=== PATIENT | female | born 1975 | race Hispanic/Latino ===

== ENCOUNTER 2019-01-14 20:05 | Emergency (ER) | payer MEDICAID | END 2019-01-14 21:41 | disposition home or self-care (01) | LOC: EDH 20:05 | DX: M79.672 Pain in left foot (principal); Z98.51 Tubal ligation status; Z90.49 Acquired absence of other specified parts of digestive tract; X50.0XXA Overexertion from strenuous movement or load, initial encounter; Y93.89 Activity, other specified; Y92.098 Other place in other non-institutional residence as the place of occurrence of the external cause; Y99.8 Other external cause status | CPT/HCPCS: 73630 ==

== ENCOUNTER 2022-01-01 16:07 | Emergency (ER) | payer MEDICAID, OTHER ==
[~2022-01-01] VITALS: Ht 167.6 cm; Wt 88.5 kg
[2022-01-01 16:29] LABS: BASOPHILS % (AUTO) 0.2 % (0.0-5.0); HEMATOCRIT 36.5 % (36-48); MEAN CORPUSCULAR HEMOGLOBIN 17.2 pg (27.0-33.0); MEAN CORPUSCULAR HGB CONC 27.7 g/dL (32.0-36.0); MEAN CORPUSCULAR VOLUME 62.3 fL (79-99); MONOCYTES % (AUTO) 4.1 % (3.0-13.0); NEUTROPHILS % (AUTO) 91.3 % (40.0-77.0); PLATELET COUNT (AUTO) 471 K/uL (130-400); RED BLOOD CELL COUNT(AUTO) 5.86 MIL/uL (4.00-5.50); RED CELL DISTRIBUTION WIDTH 20.1 % (11.0-15.5)
[2022-01-01 16:39] LABS: CREATININE 0.7 mg/dL (0.5-1.5); POTASSIUM 4.3 mmol/L (3.5-5.1)
[2022-01-01 16:43] LABS: ALBUMIN 4.2 g/dL (3.5-5.0); BILIRUBIN,TOTAL 0.5 mg/dL (0.2-1.0)
[2022-01-01] MEDS ORDERED: DICYCLOMINE 20MG (10MG/ML) AMP IM STA (16:46)
[2022-01-01] MEDS ORDERED: ONDANSETRON 4MG INJ IVP ONE (17:00)
[2022-01-01] MEDS ORDERED: 0.9%NACL 1000ML 1,779 ML IV ONE (17:00)
[2022-01-01] MEDS ORDERED: FAMOTIDINE 20MG VIAL IV ONE (17:00)
[2022-01-01] MEDS ORDERED: MORPHINE 2 MG SYG IVP ONE (17:00)
[2022-01-01 17:45] LABS: APPEARANCE,URINE Cloudy (CLEAR); BILIRUBIN,URINE Negative (NEGATIVE); COLOR,URINE Dark Yellow (YELLOW); GLUCOSE, URINE (UA) Negative (NEGATIVE); KETONES,URINE Trace mg/dL (NEGATIVE); LEUKOCYTE ESTERASE ,URINE Small (NEGATIVE); NITRATE,URINE Negative (NEGATIVE); OCCULT BLOOD,URINE Negative (NEGATIVE); PH,URINE 5.5 (5.0-8.0); PROTEIN,URINE POS 1+ mg/dL (NEGATIVE)
[2022-01-01] MEDS ORDERED: IOHEXOL-350 75 ML VIAL IV ONE (17:54)
[2022-01-01 18:04] LABS: HCG,QUAL RESULT NEGATIVE (NEGATIVE)
[2022-01-01 18:05] LABS: BACTERIA,URINE Few /HPF (None Seen); RBC,URINE 0-1 /HPF (0-1)
[2022-01-01 18:06] LABS: MUCUS,URINE Moderate LPF (None Seen); SQUAMOUS EPITHELIAL CELL,UR Moderate /HPF (0-2)
[2022-01-01 21:23] LABS: HEMATOCRIT 31.6 % (36-48); MEAN CORPUSCULAR HEMOGLOBIN 17.7 pg (27.0-33.0); MEAN CORPUSCULAR HGB CONC 27.8 g/dL (32.0-36.0); MEAN CORPUSCULAR VOLUME 63.5 fL (79-99); PLATELET COUNT (AUTO) 409 K/uL (130-400); RED BLOOD CELL COUNT(AUTO) 4.98 MIL/uL (4.00-5.50); RED CELL DISTRIBUTION WIDTH 19.9 % (11.0-15.5); WHITE BLOOD COUNT (AUTO) 13.3 K/uL (4.8-10.8)
[2022-01-01] MEDS ORDERED: L.AC1CAP6 PO (22:06)
[2022-01-01] MEDS ORDERED: FAMO-136 PO (22:06)
[2022-01-01] MEDS ORDERED: DICY20TA2 PO (22:06)
[2022-01-01] MEDS ORDERED: ONDA4TAB10 PO (22:06)
[2022-01-01 22:13] LABS: BAND NEUTROPHILS % (MANUAL) 9 % (0-2); LYMPHOCYTES % (MANUAL) 8 % (22-44); MAN.DIFF COMMENT-IMPRESSION MANUAL DIFFERENTIAL; MONOCYTES % (MANUAL) 1 % (2-9); PLATELET MORPHOLOGY COMMENT LARGE PLTS PRESENT; REACTIVE LYMPHOCYTES 2 % (0-0); SEGMENTED NEUTROPHILS % 80 % (40-70)
[2022-01-01 22:23] VITALS: BP 122/86
== END 2022-01-01 22:31 | disposition home or self-care (01) ==
LOC: EDH 16:07
DX: K52.9 Noninfective gastroenteritis and colitis, unspecified (principal); E86.9 Volume depletion, unspecified; Z20.822 Contact with and (suspected) exposure to COVID-19; Z79.899 Other long term (current) drug therapy; Z90.49 Acquired absence of other specified parts of digestive tract
CPT/HCPCS: 36415; 71045; 74177; 80053; 81001; 81025; 82150; 83605; 83690; 85025 ×2; 87635; 96372; 96374; 96375; 99285; C9803; J0500; J2405; J3490; J7030; Q9967

== ENCOUNTER 2022-04-22 19:44 | Emergency (ER) | payer OTHER ==
[~2022-04-22] VITALS: Ht 167.6 cm; Wt 91.6 kg
[~2022-04-22 19:44] MED LIST: DICY20TA2 PO; FAMO-136 PO; L.AC1CAP6 PO; ONDA4TAB10 PO
[2022-04-22 20:18] LABS: BASOPHILS % (AUTO) 0.3 % (0.0-5.0); EOSINOPHILS % (AUTO) 2.2 % (0.0-8.0); HEMATOCRIT 30.7 % (36-48); LYMPHOCYTES % (AUTO) 30.2 % (21.0-51.0); MEAN CORPUSCULAR HEMOGLOBIN 18.5 pg (27.0-33.0); MEAN CORPUSCULAR VOLUME 63.7 fL (79-99); MONOCYTES % (AUTO) 7.4 % (3.0-13.0); NEUTROPHILS % (AUTO) 59.7 % (40.0-77.0); PLATELET COUNT (AUTO) 391 K/uL (130-400); RED BLOOD CELL COUNT(AUTO) 4.82 MIL/uL (4.00-5.50); RED CELL DISTRIBUTION WIDTH 19.6 % (11.0-15.5); WHITE BLOOD COUNT (AUTO) 8.9 K/uL (4.8-10.8)
[2022-04-22 20:24] LABS: APPEARANCE,URINE Clear (CLEAR); BILIRUBIN,URINE Negative (NEGATIVE); COLOR,URINE Yellow (YELLOW); GLUCOSE, URINE (UA) Negative (NEGATIVE); KETONES,URINE Negative (NEGATIVE); LEUKOCYTE ESTERASE ,URINE Negative (NEGATIVE); NITRATE,URINE Negative (NEGATIVE); OCCULT BLOOD,URINE Negative (NEGATIVE); PH,URINE 5.5 (5.0-8.0); PROTEIN,URINE Negative (NEGATIVE); UROBILINOGEN,URINE 0.2 mg/dL (0.2-1.0)
[2022-04-22 20:27] LABS: HCG,QUAL RESULT NEGATIVE (NEGATIVE)
[2022-04-22 20:29] LABS: CREATININE 0.6 mg/dL (0.5-1.5); POTASSIUM 3.7 mmol/L (3.5-5.1)
[2022-04-22] MEDS ORDERED: 0.9% NACL 500ML IV.SOLN 500 ML IV SCH (20:30)
[2022-04-22] MEDS ORDERED: ORPHENADRINE CITRATE 30 MG/ML ML IVP ONE (20:30)
[2022-04-22] MEDS ORDERED: KETOROLAC 15MG/ML VIAL (15MG/ML) IV ONE (20:30)
[2022-04-22 20:34] LABS: ALBUMIN 3.6 g/dL (3.5-5.0); BILIRUBIN,TOTAL 0.2 mg/dL (0.2-1.0); TOTAL PROTEIN, SERUM 7.5 g/dL (6.0-8.3)
[2022-04-22] MEDS ORDERED: IBUP-2070 PO (21:37)
[2022-04-22] MEDS ORDERED: FERR-82 PO (21:37)
[2022-04-22 21:58] VITALS: BP 123/59
== END 2022-04-22 22:01 | disposition home or self-care (01) ==
LOC: EDH 19:44
DX: R51.9 Headache, unspecified (principal); D64.9 Anemia, unspecified; R74.8 Abnormal levels of other serum enzymes; Z79.899 Other long term (current) drug therapy; Z90.49 Acquired absence of other specified parts of digestive tract; Z98.890 Other specified postprocedural states
CPT/HCPCS: 36415; 70450; 80053; 81003; 81025; 84484; 85025; 96374; 96375; 99284; J1885; J2360; J7040

== ENCOUNTER 2022-11-09 18:31 | Emergency (ER) | payer OTHER ==
[~2022-11-09] VITALS: Ht 167.6 cm; Wt 86.2 kg
[~2022-11-09 18:31] MED LIST changes: +FERR-82 PO; +IBUP-2070 PO
[2022-11-09] MEDS ORDERED: IBUPROFEN 800 MG TAB PO ONE (20:30)
[2022-11-09] MEDS ORDERED: NAPR-1180 PO (20:58)
[2022-11-09 21:01] VITALS: BP 125/63
== END 2022-11-09 21:59 | disposition home or self-care (01) ==
LOC: EDH 18:31
DX: M19.042 Primary osteoarthritis, left hand (principal); M19.041 Primary osteoarthritis, right hand
CPT/HCPCS: 73130

== ENCOUNTER 2023-04-25 16:17 | Emergency (ER) | payer OTHER ==
[~2023-04-25] VITALS: Ht 165.1 cm; Wt 88.2 kg
[~2023-04-25 16:17] MED LIST changes: +NAPR-1180 PO
[2023-04-25 16:18] VITALS: BP 130/59
== END 2023-04-25 18:25 | disposition home or self-care (01) ==
LOC: EDH 16:17
DX: B34.9 Viral infection, unspecified (principal); I10 Essential (primary) hypertension; E11.9 Type 2 diabetes mellitus without complications; E78.00 Pure hypercholesterolemia, unspecified; M19.90 Unspecified osteoarthritis, unspecified site; Z20.822 Contact with and (suspected) exposure to COVID-19; Z90.49 Acquired absence of other specified parts of digestive tract; Z79.899 Other long term (current) drug therapy; Z98.890 Other specified postprocedural states
CPT/HCPCS: 99283; 87635; 87880; 87804 ×2; C9803

== ENCOUNTER 2023-05-07 17:04 | Emergency (ER) | payer OTHER ==
[~2023-05-07] VITALS: Ht 165.1 cm; Wt 87.1 kg
[2023-05-07 17:08] VITALS: BP 143/83
[2023-05-07 18:42] LABS: BASOPHILS % (AUTO) 0.3 % (0.0-5.0); EOSINOPHILS % (AUTO) 1.3 % (0.0-8.0); HEMATOCRIT 26.3 % (36-48); LYMPHOCYTES % (AUTO) 26.9 % (21.0-51.0); MEAN CORPUSCULAR HEMOGLOBIN 17.1 pg (27.0-33.0); MEAN CORPUSCULAR HGB CONC 27.8 g/dL (32.0-36.0); MEAN CORPUSCULAR VOLUME 61.4 fL (79-99); MONOCYTES % (AUTO) 8.5 % (3.0-13.0); NEUTROPHILS % (AUTO) 62.6 % (40.0-77.0); PLATELET COUNT (AUTO) 383 K/uL (130-400); RED BLOOD CELL COUNT(AUTO) 4.28 MIL/uL (4.00-5.50); RED CELL DISTRIBUTION WIDTH 19.5 % (11.0-15.5); WHITE BLOOD COUNT (AUTO) 7.5 K/uL (4.8-10.8)
[2023-05-07 18:48] LABS: CREATININE 0.6 mg/dL (0.5-1.5); POTASSIUM 3.6 mmol/L (3.5-5.1)
[2023-05-07 18:50] LABS: ALBUMIN 3.3 g/dL (3.5-5.0); TOTAL PROTEIN, SERUM 7.3 g/dL (6.0-8.3)
[2023-05-07] MEDS ORDERED: KETOROLAC 30MG VIAL (30MG/ML) IM ONE (19:00)
[2023-05-07] MEDS ORDERED: CEPH500B PO (20:03)
== END 2023-05-07 20:31 | disposition home or self-care (01) ==
LOC: EDH 17:04
DX: L03.116 Cellulitis of left lower limb (principal); D53.9 Nutritional anemia, unspecified; I10 Essential (primary) hypertension; E11.9 Type 2 diabetes mellitus without complications; E78.00 Pure hypercholesterolemia, unspecified; M19.90 Unspecified osteoarthritis, unspecified site; Z90.49 Acquired absence of other specified parts of digestive tract; Z98.890 Other specified postprocedural states; Z79.899 Other long term (current) drug therapy
CPT/HCPCS: 99284; 80053; 85025; 36415; 73620; 96372; J1885

== ENCOUNTER 2023-06-24 15:03 | Emergency (ER) | payer OTHER ==
[~2023-06-24] VITALS: Ht 165.1 cm; Wt 88.5 kg
[~2023-06-24 15:03] MED LIST changes: +CEPH500B PO
[2023-06-24 15:44] LABS: APPEARANCE,URINE CLEAR (CLEAR); BILIRUBIN,URINE NEGATIVE (NEGATIVE); COLOR,URINE LIGHT-YELLOW (YELLOW); GLUCOSE, URINE (UA) >=1000 mg/dL (NEGATIVE); KETONES,URINE 5 mg/dL (NEGATIVE); LEUKOCYTE ESTERASE ,URINE 25 Leu/uL (NEGATIVE); NITRATE,URINE NEGATIVE (NEGATIVE); OCCULT BLOOD,URINE NEGATIVE (NEGATIVE); PH,URINE 5.5 (5.0-8.0); PROTEIN,URINE 10 mg/dL (NEGATIVE); UROBILINOGEN,URINE 0.2 mg/dL (0.2-1.0)
[2023-06-24] MEDS ORDERED: CEFTRIAXONE 1G VIAL IM ONE (16:30)
[2023-06-24 16:37] LABS: BASOPHILS % (AUTO) 0.3 % (0.0-5.0); EOSINOPHILS % (AUTO) 0.8 % (0.0-8.0); HEMATOCRIT 28.7 % (36-48); LYMPHOCYTES % (AUTO) 24.2 % (21.0-51.0); MEAN CORPUSCULAR HGB CONC 27.9 g/dL (32.0-36.0); MEAN CORPUSCULAR VOLUME 60.9 fL (79-99); MONOCYTES % (AUTO) 6.4 % (3.0-13.0); PLATELET COUNT (AUTO) 346 K/uL (130-400); RED BLOOD CELL COUNT(AUTO) 4.71 MIL/uL (4.00-5.50); RED CELL DISTRIBUTION WIDTH 18.7 % (11.0-15.5); WHITE BLOOD COUNT (AUTO) 7.2 K/uL (4.8-10.8)
[2023-06-24 16:37] LABS: BACTERIA,URINE FEW /HPF (None Seen); MUCUS,URINE FEW LPF (None Seen); SQUAMOUS EPITHELIAL CELL,UR MOD /HPF (0-2)
[2023-06-24 16:45] LABS: CREATININE 0.7 mg/dL (0.5-1.5); POTASSIUM 3.6 mmol/L (3.5-5.1)
[2023-06-24 16:49] LABS: ALBUMIN 3.3 g/dL (3.5-5.0); TOTAL PROTEIN, SERUM 7.4 g/dL (6.0-8.3)
[2023-06-24] MEDS ORDERED: NITR100C PO (19:46)
[2023-06-24 19:57] VITALS: BP 142/78; PULSE 88; RESP 16; O2SAT 99
== END 2023-06-24 20:02 | disposition home or self-care (01) ==
LOC: EDH 15:03
DX: D64.9 Anemia, unspecified (principal); N39.0 Urinary tract infection, site not specified; E11.9 Type 2 diabetes mellitus without complications; E78.00 Pure hypercholesterolemia, unspecified; I10 Essential (primary) hypertension; M19.90 Unspecified osteoarthritis, unspecified site; Z90.49 Acquired absence of other specified parts of digestive tract; Z98.51 Tubal ligation status
CPT/HCPCS: 99285; 76856; 80053; 85025; 87797; 87486; 81001; 36415; 96372; J0696

== ENCOUNTER 2023-08-03 16:36 | Emergency (ER) | payer OTHER ==
[~2023-08-03] VITALS: Ht 165.1 cm; Wt 86.2 kg
[~2023-08-03 16:36] MED LIST changes: +NITR100C PO
[2023-08-03 16:38] VITALS: BP 146/82; PULSE 85; RESP 17
[2023-08-03 16:58] LABS: APPEARANCE,URINE CLEAR (CLEAR); BILIRUBIN,URINE NEGATIVE (NEGATIVE); COLOR,URINE LIGHT-YELLOW (YELLOW); GLUCOSE, URINE (UA) 500 mg/dL (NEGATIVE); KETONES,URINE NEGATIVE (NEGATIVE); LEUKOCYTE ESTERASE ,URINE 500 Leu/uL (NEGATIVE); NITRATE,URINE NEGATIVE (NEGATIVE); OCCULT BLOOD,URINE LARGE (NEGATIVE); PH,URINE 5.5 (5.0-8.0); PROTEIN,URINE 10 mg/dL (NEGATIVE); UROBILINOGEN,URINE 0.2 mg/dL (0.2-1.0)
[2023-08-03 16:59] LABS: ADD UA MICROSCOPIC YES
[2023-08-03 17:03] LABS: BACTERIA,URINE RARE /HPF (None Seen); MUCUS,URINE RARE LPF (None Seen); RBC,URINE 51-100 /HPF (0-1); SQUAMOUS EPITHELIAL CELL,UR RARE /HPF (0-2); UNCLASSIFIED CRYSTAL 2 /HPF (None Seen); WBC,URINE 26-50 /HPF (0-1); YEAST,URINE BUDDING FEW /HPF (None Seen)
[2023-08-03 17:20] LABS: HCG,QUALITATIVE URINE NEGATIVE (NEGATIVE)
[2023-08-03] MEDS ORDERED: PHEN-847 PO (18:40)
[2023-08-03] MEDS ORDERED: FLUC150T PO (18:40)
[2023-08-03] MEDS ORDERED: TERB250T89 PO (18:40)
[2023-08-03] MEDS ORDERED: MACR100 PO (18:40)
== END 2023-08-03 19:11 | disposition home or self-care (01) ==
LOC: EDH 16:36
DX: I10 Essential (primary) hypertension (principal); E11.9 Type 2 diabetes mellitus without complications; E78.00 Pure hypercholesterolemia, unspecified; M19.90 Unspecified osteoarthritis, unspecified site; Z90.49 Acquired absence of other specified parts of digestive tract; Z79.899 Other long term (current) drug therapy; Z98.890 Other specified postprocedural states
CPT/HCPCS: 81001; 81025; 87077; 87088; 87186

== ENCOUNTER 2024-02-26 11:51 | Emergency (ER) | payer OTHER ==
[~2024-02-26] VITALS: Ht 165.1 cm; Wt 84.8 kg
[~2024-02-26 11:51] MED LIST changes: +FLUC150T PO; +MACR100 PO; +PHEN-847 PO; +TERB250T89 PO
[2024-02-26 12:28] VITALS: BP 159/79; PULSE 79; RESP 18
== END 2024-02-26 13:26 | disposition left against medical advice (07) ==
LOC: EDH 11:51
DX: R07.81 Pleurodynia (principal); Z53.21 Procedure and treatment not carried out due to patient leaving prior to being seen by health care provider
CPT/HCPCS: 99281

== ENCOUNTER 2024-05-12 22:04 | Emergency (ER) | payer OTHER ==
[~2024-05-12] VITALS: Ht 165.1 cm; Wt 85.4 kg
[~2024-05-12 22:04] MED LIST changes: +ONDA-243 PO; -ONDA4TAB10 PO
[2024-05-12 22:29] VITALS: BP 141/83; PULSE 85; RESP 18; O2SAT 99
[2024-05-12 22:43] LABS: BASOPHILS # (AUTO) 0.03 K/uL (0.00-0.20); BASOPHILS % (AUTO) 0.3 % (0.0-5.0); EOSINOPHILS # (AUTO) 0.09 K/uL (0.00-0.70); HEMATOCRIT 26.9 % (36-48); IMMATURE GRANULOCYTE ABSOLUTE 0.03 K/uL (0-1); LYMPHOCYTES # (AUTO) 2.9 K/uL (1.0-4.8); LYMPHOCYTES % (AUTO) 30.7 % (21.0-51.0); MEAN CORPUSCULAR HEMOGLOBIN 16.3 pg (27.0-33.0); MEAN CORPUSCULAR HGB CONC 27.5 g/dL (32.0-36.0); MEAN CORPUSCULAR VOLUME 59.4 fL (79-99); MONOCYTES # (AUTO) 0.5 K/uL (0.1-1.0); MONOCYTES % (AUTO) 5.6 % (3.0-13.0); NEUTROPHILS # (AUTO) 5.9 K/uL (1.8-7.7); NEUTROPHILS % (AUTO) 62.1 % (40.0-77.0); PLATELET COUNT (AUTO) 379 K/uL (130-400); RED BLOOD CELL COUNT(AUTO) 4.53 MIL/uL (4.00-5.50); RED CELL DISTRIBUTION WIDTH 19.5 % (11.0-15.5); WHITE BLOOD COUNT (AUTO) 9.5 K/uL (4.8-10.8)
[2024-05-12 22:49] LABS: APPEARANCE,URINE CLEAR (CLEAR); BILIRUBIN,URINE NEGATIVE (NEGATIVE); COLOR,URINE LIGHT-YELLOW (YELLOW); GLUCOSE, URINE (UA) NEGATIVE (NEGATIVE); KETONES,URINE NEGATIVE (NEGATIVE); LEUKOCYTE ESTERASE ,URINE NEGATIVE Leu/uL (NEGATIVE); NITRATE,URINE NEGATIVE (NEGATIVE); OCCULT BLOOD,URINE NEGATIVE (NEGATIVE); PH,URINE 5.5 (5.0-8.0); PROTEIN,URINE 10 mg/dL (NEGATIVE); UROBILINOGEN,URINE 0.2 mg/dL (0.2-1.0)
[2024-05-12 22:50] LABS: HCG,QUALITATIVE URINE NEGATIVE (NEGATIVE)
[2024-05-12 22:55] LABS: ADD UA MICROSCOPIC YES
[2024-05-12 22:56] LABS: BACTERIA,URINE FEW /HPF (None Seen); MUCUS,URINE RARE LPF (None Seen); RBC,URINE 0-1 /HPF (0-1); SQUAMOUS EPITHELIAL CELL,UR MOD /HPF (0-2)
[2024-05-12 22:58] LABS: ALBUMIN 3.8 g/dL (3.5-5.0); BILIRUBIN,TOTAL 0.3 mg/dL (0.2-1.0); CREATININE 0.7 mg/dL (0.5-1.0); TOTAL PROTEIN, SERUM 7.7 g/dL (6.0-8.3)
[2024-05-12] MEDS: FAMOTIDINE 20MG VIAL IV ONE (23:19)
[2024-05-12] MEDS: ONDANSETRON 4MG INJ IVP ONE (23:19)
[2024-05-12] MEDS: POTASSIUM BICARB/CIT AC 25 MEQ TABLET.EFF PO ONE (23:19)
== END 2024-05-13 00:16 | disposition home or self-care (01) ==
LOC: EDH 22:04
DX: E87.6 Hypokalemia (principal); R11.2 Nausea with vomiting, unspecified
CPT/HCPCS: 99285; 96374; 71045; 96375; 84484; 80053; 83690; 85025; 81001; 81025; 36415; 93005; J3490; J2405

== ENCOUNTER 2024-10-24 10:02 | Emergency (ER) | payer SELFPAY ==
[~2024-10-24] VITALS: Ht 160 cm; Wt 67.1 kg
[~2024-10-24 10:02] MED LIST changes: +AZIT250T9 PO; +DOCU-116 PO; +FERR324T4 PO; +IBUP-2077 PO; +METH4TAB3 PO
[2024-10-24] MEDS ORDERED: VALG450T15 PO (10:34)
--- NOTE | 2024-10-24 10:34 | ERN ---
General Chief Complaint: Vaginal Problems/Bleeding Stated Complaint: BLISTERS IN VAGINA Time Seen by MD: 10:03 Source: patient History of Present Illness Initial Comments Patient is a 49-year-old female coming in to be evaluated for vaginal lesions. Patient states that the vaginal lesions appears three days ago. Patient also states that she has been having intercourse with an ex-boyfriend. Allergies: Coded Allergies: No Known Drug Allergies (Unverified Allergy, Unknown, 01/01/22) Home Meds Active Scripts Ibuprofen (Ibuprofen 800 mg Tab) 800 Mg Tab, 800 MG PO Q8H PRN for fever or pain, #30 TAB 0 Refills Prov:ANGE DUNCAN NP 08/19/24 Docusate Sodium (Colace) 100 Mg Capsule, 100 MG PO TID for constipation for 10 Days, #30 CAP 0 Refills Prov:JUD DAVIS 06/12/24 Ferrous Sulfate (Ferrous Sulfate) 324 Mg (65 Mg Iron) Tablet.dr, 324 MG PO DAILY for 14 Days, #14 TAB Prov:JUD DAVIS 06/12/24 Methylprednisolone (Medrol) 4 Mg Tab.ds.pk, 4 MG PO AD, #1 PACK Prov:JUD DAVIS 06/12/24 Azithromycin (Azithromycin) 250 Mg Tablet, 250 MG PO DAILY for 5 Days, #6 TAB Take 2 250mg tablets on day 1 then take 1 250mg tablets daily for 4 days. Prov:JUD DAVIS 06/12/24 Terbinafine HCl (Terbinafine HCl) 250 Mg Tablet, 250 MG PO DAILY, #14 TAB Prov:SIDNEY JORDAN [facility] 08/03/23 Phenazopyridine HCl (Pyridium) 200 Mg Tab, 200 MG PO TIDPC, #12 TAB TAKE WITH FOOD TO PREVENT STOMACH UPSET. Prov:SIDNEY JORDAN [facility] 08/03/23 Nitrofurantoin/Nitrofuran Mac (Macrobid) 100 Mg Cap, 1 CAP PO BID for 7 Days, #14 CAP 0 Refills Prov:SIDNEY JORDAN [facility] 08/03/23 Fluconazole (Diflucan) 150 Mg Tablet, 150 MG PO Q72H, #3 TAB Prov:SIDNEY JORDAN [facility] 08/03/23 Nitrofurantoin Macrocrystal (Nitrofurantoin) 100 Mg Capsule, 100 MG PO BID, #10 CAP 0 Refills Prov:COCO DOMINGUEZ [employer] 06/24/23 Cephalexin Monohydrate (Keflex) 500 Mg Cap, 500 MG PO QID for 7 Days, #28 CAP Prov:BARBY PETTY [facility] [employer] 05/07/23 Naproxen (Naprosyn) 500 Mg Tablet, 500 MG PO BIDPC for 10 Days, #20 TAB 0 Refills Prov:JOVANNYBARBY [facility] [employer] 11/09/22 Ferrous Sulfate (Iron) 325 Mg Tablet, 325 MG PO BID for 30 Days, #60 TAB Prov:LEOPEARL HARRISON A DO 04/22/22 Ibuprofen (Ibuprofen) 600 Mg Tablet, 600 MG PO Q6H PRN for PAIN, #20 TAB Prov:LEOMICHAELPEARL A DO 04/22/22 Famotidine (Pepcid) 20 Mg Tablet, 20 MG PO BID, #30 TAB Prov:FITTING,KAI [facility] [employer] 01/01/22 Dicyclomine HCl (Bentyl) 20 Mg Tab, 20 MG PO QID for ABDOMINAL PAIN, #15 TAB Prov:FITTING,KAI [employer] 01/01/22 L.acidoph & Paracasei,B.lactis (Probiotic) 1 Each Capsule, 1 EACH PO DAILY, #30 CAP Prov:FITTING,KAI [employer] 01/01/22 Ondansetron (Ondansetron Odt) 4 Mg Tab.rapdis, 4 MG PO Q6HPRN PRN for NAUSEA, #15 TAB Prov:FITTING,KAI [employer] 01/01/22 Past Medical History Past Medical History: Arthritis, Diabetes-Type II, High Cholesterol, Hypertension Past Surgical History: Cholecystectomy, BTL Surgical History Other: TUBAL LIGATION Social History Social History: Negative Female( History) History: Not Applicable LMP: Sep 29, 2024 ROS Dictation CONSTITUTIONAL: No chills, no fever, no weakness, no diaphoresis, no malaise. HEAD/FACE: No signs of trauma. EENT: No eye pain, no blurred vision, no tearing, no double vision, no ear pain, no ear discharge, no nose pain, no nasal congestion, no throat pain, no throat swelling, no mouth pain. RESPIRATORY: No cough, no orthopnea, no SOB, no stridor, no wheezing. CARDIOVASCULAR: No chest pain, no edema, no palpitations, no syncope. GASTROINTESTINAL/ABDOMINAL: No abdominal pain, no constipation, no diarrhea, no nausea, no vomiting. GENITOURINARY: No abnormal discharge, no dysuria, no frequent urination, no hematuria. complaints of pain in the genitals. MUSCULOSKELETAL: No back pain, no gout, no joint pain, no joint swelling, no muscle pain, no muscle stiffness, no neck pain. INTEGUMENTARY: No change in color, no change in hair/nails, no dryness, no lesion, no lumps, no rash. NEUROLOGICAL/PSYCH: No anxiety, not depressed, no emotional problem, no headac he, no numbness, no pre-existing deficit, no history of seizures, no tremors, no weakness. HEMATOLOGIC/LYMPHATIC: Not anemic, no history of blood clots, no apparent bleeding, no bruising, glands not swollen. All Systems Negative, Except as Noted. Physical Exam Physical Exam Dictation VITAL SIGNS: Reviewed. GENERAL APPEARANCE: Alert, oriented x3, no acute distress, obese. HEAD AND FACE: Non-traumatic. EYES: PERRL, pink conjunctivas, eyelid no trauma, anterior chamber clear. EARS: Pinnas intact and no signs of trauma or erythema. Ear canals clear and no discharge. TMs no erythema. NOSE: No discharge, no bleeding. OROPHARYNX: Mouth normal, teeth no caries, tongue pink. Pharynx clear, no erythema. Tonsils no exudates, no abscesses noted. Mucous membrane moist. NECK: Supple, non-tender, no thyromegaly, no masses, no JVD, no bruits. BREAST: Deferred. CHEST: No tenderness, no crepitus, no paradoxical movement, no retractions. LUNGS: Clear, well-ventilated, symmetric, no rales, no wheezing, no rhonchi, no stridor, good breath sounds bilaterally. HEART: Regular rate, regular rhythm, no murmur, no gallops. VASCULAR: No peripheral edema. ABDOMEN: Soft, positive bowel sounds, nondistended, no guarding, nontender, no rebound, no masses no hepatomegaly, no splenomegaly, no Rodriges's sign, no hernias. RECTAL: Deferred. GENITAL: Chaperoned by nurse Michelle, left labia majora vesicles unroofed. NEUROLOGICAL: Normal speech, gross motor function intact, gross sensory fu nction intact. MUSCULOSKELETAL: Neck nontender, full range of motion, back nontender, full range of motion. EXTREMITIES: Nontender, full range of motion. SKIN: Color pink, dry, no turgor, no rash, no lacerations, no abrasions, no contusions. LYMPHATICS: Deferred. Results Laboratory and Microbiology Labs Reviewed?: Yes MDM MDM: Differential diagnosis: Herpes simplex genitalia, rash, abrasion Patient is a 49-year-old female coming in to be evaluated for a genital rash. On physical exam there is multiple unroofed vesicular lesions present on the left labia majora. Laboratory workup collected patient will be notified on results. Until then patient will receive acyclovir for treatment of possible herpes simplex genitalia. ED Course Orders Procedure Category Date Status Time Hsv 1 Type Specific LAB 10/24/24 Verified Igg,Serum 10:28 Hsv 1&2 Type LAB 10/24/24 Verified Specific,Igg 10:28 Herpes Simplex Virus LAB 10/24/24 Verified I/Ii-Pcr 10:28 Hsv Culture ELLI 10/24/24 Verified 10:28 Hsv Culture & Type ELLI 10/24/24 Verified 10:28 Vital Signs Date Time Temp Pulse Resp B/P (MAP) Pulse Ox O2 Delivery O2 Flow Rate FiO2 10/24/24 10:03 98.6 74 16 139/73 99 Room Air 0 DX & DISP Disposition: Discharge Departure Impression: Primary Impression: Herpes simplex of female genitalia Condition: Stable Scripts Valganciclovir HCl (Valganciclovir HCl) 450 Mg Tablet 1000 MG PO BID for 10 Days, #20 TAB Prov: JENNIFER OSBORN MD 10/24/24 Additional Instructions: FOLLOW-UP WITH PRIMARY CARE PROVIDER IN 1 TO 2 DAYS. TAKE MEDICATIONS DIRECTED HERE IN THE EMERGENCY ROOM. OKAY TO CONTINUE HOME MEDICATIONS UNLESS OTHERWISE DISCUSSED DURING YOUR VISIT IN THE EMERGENCY ROOM TODAY. RETURN TO YOUR NEAREST EMERGENCY ROOM IF SYMPTOMS WORSEN OR IF THERE IS NO IMPROVEMENT. CALL 911 IF YOU NEED IMMEDIATE ASSISTANCE. TAKE TYLENOL [id number] NEEDED AND IF NO CONTRAINDICATIONS ARE PRESENT. INCREASE ORAL HYDRATION. A WOUND CULTURE OR URINE CULTURE WAS ORDERED HERE IN THE EMERGENCY ROOM DEPARTMENT PLEASE FOLLOW-UP WITH PRIMARY CARE PROVIDER AND ADVISE THEM TO GET REPEAT PORTS FROM OUR FACILITY. IF YOU HAD ANY LEANN WRAP/SPLINTS THAT WERE APPLIED HERE, PLEASE DO NOT REMOVE THEM UNTIL YOU SEE YOUR PRIMARY CARE OR SPECIALTY. Referrals: Referrals: HUNTER DE PAZ PA-C (PCP) Time of Disposition: 10:31 JENNIFER OSBORN MD Oct 24, 2024 10:34
[2024-10-24 11:20] VITALS: BP 112/57; PULSE 80; RESP 16; TEMP 98.3; O2SAT 98
[2024-10-26 23:08] LABS: HERPES SIMPLEX VIRUS-1 BY PCR Negative (Negative); HERPES SIMPLEX VIRUS-2 BY PCR Positive (Negative)
== END 2024-10-24 11:35 | disposition home or self-care (01) ==
LOC: EDH 10:02
DX: B00.9 Herpesviral infection, unspecified (principal); E11.9 Type 2 diabetes mellitus without complications; E78.00 Pure hypercholesterolemia, unspecified; I10 Essential (primary) hypertension; M19.90 Unspecified osteoarthritis, unspecified site; Z90.49 Acquired absence of other specified parts of digestive tract; Z98.51 Tubal ligation status
CPT/HCPCS: 36415; 86695; 86696; 87529; 99283

== ENCOUNTER 2025-02-12 13:44 | Emergency (ER) | payer SELFPAY ==
[~2025-02-12] VITALS: Ht 162.6 cm; Wt 83.9 kg
[~2025-02-12 13:44] MED LIST changes: +VALG450T15 PO
--- NOTE | 2025-02-12 13:50 | ERN ---
ED Note History of Present Illness Stated Complaint: FEVER, CHILLS, COUGH, CHEST PAIN Chief Complaint: Sore Throat Time Seen by MD: 13:45 Dictation: PATIENT IS A 49-YEAR-OLD FEMALE COMING IN WITH FLU-LIKE SYMPTOMS TO INCLUDE BODY ACHES, DRY COUGH, SORE THROAT WITH PAINFUL SWALLOWING AND SINUS CONGESTION WITH HEADACHE FOR LAST THREE DAYS. SHE STATES SHE HAS HAD FEVER ALTHOUGH NO THERMOMETER HOME. NO NAUSEA NO VOMITING NO DIARRHEA NO LOSS OF TASTE OR SMELL. SHE HAS NOT SEEN HER PRIMARY CARE DOCTOR. Allergies: Coded Allergies: No Known Drug Allergies (Unverified Allergy, Unknown, 01/01/22) Home Meds Active Scripts Valganciclovir HCl (Valganciclovir HCl) 450 Mg Tablet, 1000 MG PO BID for 10 Days, #20 TAB Prov:JENNIFER OSBORN MD 10/24/24 Ibuprofen (Ibuprofen 800 mg Tab) 800 Mg Tab, 800 MG PO Q8H PRN for fever or pain, #30 TAB 0 Refills Prov:ANGE DUNCAN NP 08/19/24 Docusate Sodium (Colace) 100 Mg Capsule, 100 MG PO TID for constipation for 10 Days, #30 CAP 0 Refills Prov:JUD DAVIS 06/12/24 Ferrous Sulfate (Ferrous Sulfate) 324 Mg (65 Mg Iron) Tablet.dr, 324 MG PO DAILY for 14 Days, #14 TAB Prov:JUD DAVIS 06/12/24 Methylprednisolone (Medrol) 4 Mg Tab.ds.pk, 4 MG PO AD, #1 PACK Prov:JUD DAVIS 06/12/24 Azithromycin (Azithromycin) 250 Mg Tablet, 250 MG PO DAILY for 5 Days, #6 TAB Take 2 250mg tablets on day 1 then take 1 250mg tablets daily for 4 days. Prov:JUD DAVIS 06/12/24 Terbinafine HCl (Terbinafine HCl) 250 Mg Tablet, 250 MG PO DAILY, #14 TAB Prov:SIDNEY JORDAN [employer] CONSULTING DIRECTOR 08/03/23 Phenazopyridine HCl (Pyridium) 200 Mg Tab, 200 MG PO TIDPC, #12 TAB TAKE WITH FOOD TO PREVENT STOMACH UPSET. Prov:SIDNEY JORDAN IT CONSULTING DIRECTOR 08/03/23 Nitrofurantoin/Nitrofuran Mac (Macrobid) 100 Mg Cap, 1 CAP PO BID for 7 Days, #14 CAP 0 Refills Prov:SARAH JORDANLUPE IT CONSULTING DIRECTOR 08/03/23 Fluconazole (Diflucan) 150 Mg Tablet, 150 MG PO Q72H, #3 TAB Prov:SARAH JORDANLUPE IT CONSULTING DIRECTOR 08/03/23 Nitrofurantoin Macrocrystal (Nitrofurantoin) 100 Mg Capsule, 100 MG PO BID, #10 CAP 0 Refills Prov:COCO DOMINGUEZ [employer]EL[employer] 06/24/23 Cephalexin Monohydrate (Keflex) 500 Mg Cap, 500 MG PO QID for 7 Days, #28 CAP Prov:BARBY PETTY V IT CONSULTING DIRECTOR 05/07/23 Naproxen (Naprosyn) 500 Mg Tablet, 500 MG PO BIDPC for 10 Days, #20 TAB 0 Refills Prov:BARBY PETTY V IT CONSULTING DIRECTOR 11/09/22 Ferrous Sulfate (Iron) 325 Mg Tablet, 325 MG PO BID for 30 Days, #60 TAB Prov:LEOPEARL HARRISON A DO 04/22/22 Ibuprofen (Ibuprofen) 600 Mg Tablet, 600 MG PO Q6H PRN for PAIN, #20 TAB Prov:LEOMICHAELPEARL A DO 04/22/22 Famotidine (Pepcid) 20 Mg Tablet, 20 MG PO BID, #30 TAB Prov:FITTINGKAI IT CONSULTING DIRECTOR 01/01/22 Dicyclomine HCl (Bentyl) 20 Mg Tab, 20 MG PO QID for ABDOMINAL PAIN, #15 TAB Prov:FITTINGKAIP 01/01/22 L.acidoph & Paracasei,B.lactis (Probiotic) 1 Each Capsule, 1 EACH PO DAILY, #30 CAP Prov:FITTINGKAI IT CONSULTING DIRECTOR 01/01/22 Ondansetron (Ondansetron Odt) 4 Mg Tab.rapdis, 4 MG PO Q6HPRN PRN for NAUSEA, #15 TAB Prov:FITTINGKAIP 01/01/22 Past Medical History Past Medical History: Arthritis, Diabetes-Type II, High Cholesterol, Hypertension Surgical History: Cholecystectomy, BTL Surgical History Other: TUBAL LIGATION Social History: Negative History: Not Applicable RN Note Reviewed/Agreed w/PFSH: Yes Review of System Dictation CONSTITUTIONAL: NEGATIVE EXCEPT FOR HPI FEVER CHILLS HEAD/FACE: NEGATIVE EXCEPT FOR HPI EENT: NEGATIVE EXCEPT FOR HPI SINUS HEADACHE, SORE THROAT WITH PAINFUL SWALLOWING, SINUS CONGESTION RESPIRATORY: NEGATIVE EXCEPT FOR HPI DRY COUGH GASTROINTESTINAL/ABDOMINAL: NEGATIVE EXCEPT FOR HPI GENITOURINARY: NEGATIVE EXCEPT FOR HPI MUSCULOSKELETAL: NEGATIVE EXCEPT FOR HPI INTEGUMENTARY: NEGATIVE EXCEPT FOR HPI NEUROLOGICAL/PSYCH: NEGATIVE EXCEPT FOR HPI HEMATOLOGIC/LYMPHATIC: NEGATIVE EXCEPT FOR HPI ALL SYSTEMS NEGATIVE, EXCEPT NOTED ABOVE. 13 POINT REVIEW OF SYSTEMS ASSESSED AND ALL NEGATIVE EXCEPT FOR ABOVE. Initial Vital Sign VS Vital Signs Date Time Temp Pulse Resp B/P (MAP) Pulse Ox O2 Delivery O2 Flow Rate FiO2 02/12/25 13:47 99.1 18 18 138/65 98 Room Air 0 02/12/25 13:54 21 Physical Exam Dictation VITAL SIGNS REVIEWED GENERAL APPEARANCE: ALERT, ORIENTED X 3, MODERATE ACUTE DISTRESS, WELL DEVELOPED, NOURISHED. HEAD AND FACE: NON-TRAUMATIC. EYES: PERRL, PINK CONJUNCTIVAS, EYELID NO TRAUMA, ANTERIOR CHAMBER WITH ARCUS SENILIS. EARS: PINNAS INTACT AND NO SIGNS OF TRAUMA OR ERYTHEMA EAR CANALS CLEAR AND NO DISCHARGE TM NO ERYTHEMA NOSE: CLEAR DISCHARGE, NO BLEEDING. OROPHARYNX: MOUTH NORMAL, TONGUE PINK, PHARYNX CLEAR,NO ERYTHEMA, TONSIL 3/4 BILATERALLY AND CRYPTIC, NO ABSCESSES NOTED, MUCOUS MEMBRANE MOIST UVULA MIDLINE, VOICE IS CLEAR NECK: SUPPLE, NON-TENDER, NO THYROMEGALY, NO MASSES, NO JVD, NO BRUITS BREAST:DEFERRED CHEST:NO TENDERNESS, NO CREPITUS, NO PARADOXICAL MOVEMENT, NO RETRACTIONS LUNGS:CLEAR, WELL-VENTILATED, SYMMETRIC, NO RALES, NO WHEEZING, NO RHONCHI, NO STRIDOR, GOOD BREATH SOUNDS BILATERALLY HEART: REGULAR RATE, REGULAR RHYTHM, NO MURMUR, NO GALLOPS VASCULAR: NO PERIPHERAL EDEMA, ABDOMEN: SOFT, POSITIVE BOWEL SOUNDS, NONDISTENDED, NO GUARDING, NONTENDER, NO REBOUND, NO MASSES NO HEPATOMEGALY, NO SPLENOMEGALY, NO MARSHALL'S SIGN, NO HERNIAS. RECTAL: DEFERRED GENITAL: DEFERRED NEUROLOGICAL: NORMAL SPEECH, MOTOR FUNCTION INTACT, SENSORY FUNCTION INTACT MUSCULOSKELETAL: NECK NONTENDER, FULL RANGE OF MOTION, BACK NONTENDER, FULL RANGE OF MOTION, EXTREMITIES: NONTENDER, FULL RANGE OF MOTION SKIN: COLOR PINK, DRY, NO TURGOR, NO RASH, NO LACERATIONS, NO ABRASIONS, NO CONTUSIONS. LYMPHATIC: DEFERRED Results (Laboratory/Radiology) Laboratory/Radiology Laboratory Tests Test 02/12/25 13:57 Influenza Type A Antigen Negative For Type A Influenza Type B Antigen Positive For Type B SARS-CoV-2 Antigen (Rapid) PRESUMPTIVE NEGATIVE Group A Streptococcus Rapid positive (NEGATIVE) *A Labs Reviewed?: Yes ED Course ED Course Orders Procedure Category Date Status Time Dexamethasone 4mg/Ml PHA 02/12/25 Complete 1ml Vial (Dexametha 14:00 Ibuprofen 800 Mg Tab PHA 02/12/25 Complete (Motrin) 14:00 Rapid (Group A Strep) LAB 02/12/25 Complete 13:47 Covid19 (Sars Antigen LAB 02/12/25 Complete Rapid) 13:47 Influenza Type A & B, LAB 02/12/25 Complete Rapid 13:47 Ceftriaxone 1g Vial PHA 02/12/25 Verified (Rocephine 1g Inj) 15:00 Current Medications Medications (Trade) Dose Ordered Sig/Mercedes Route PRN Reason Start Time Stop Time Status Last Admin Dose Admin Dexamethasone Sodium Phosphate (dexaMETHasone 4MG/ML 1ML VIAL) 8 mg ONCE ONCE IM 02/12/25 14:00 02/12/25 14:01 DC 02/12/25 14:01 Ibuprofen (moTRIN) 800 mg ONCE ONCE PO 02/12/25 14:00 02/12/25 14:01 DC Vital Signs Date Time Temp Pulse Resp B/P (MAP) Pulse Ox O2 Delivery O2 Flow Rate FiO2 02/12/25 13:54 99.0 87 12 128/89 98 Room Air* 0 21 02/12/25 13:47 99.1 18 18 138/65 98 Room Air 0 1445/PATIENT AWARE THAT SHE HAS A INFLUENZA B AND STREP PHARYNGITIS. SHE WILL BE GIVEN A SHOT OF ROCEPHIN ALONG WITH DECADRON DISCHARGED HOME TO SEE HER DOCTOR, DR. SO IN THE NEXT 3-4 DAYS. Medical Decision Making MDM MEDICAL DISCHARGE MAKING BASED ON SWABS FOR FLU COVID AND STREP. PATIENT IS STREP POSITIVE INFLUENZA B POSITIVE DISCHARGED HOME WITH TAMIFLU AND AUGMENTIN TOLD NO WORK UNTIL CLEARED BY HER DOCTOR BACK IN 3-4 DAYS. DX & DISP Disposition: Discharge Departure Impression: Primary Impression: Influenza B Additional Impressions: Acute streptococcal tonsillitis, Fever Condition: Stable Scripts Oseltamivir Phosphate (Tamiflu) 75 Mg Cap 75 MG PO BID for 5 Days, #10 CAP Prov: ANGE DUNCAN NP 02/12/25 Amoxicillin/Potassium Clav (Amox Tr-K Clv 600-42.9/5 Susp) 600 Mg-42.9 Mg/5 Ml Susp.recon 10 ML PO BID for 10 Days, #200 ML 0 Refills Prov: ANGE DUNCAN NP 02/12/25 Prednisolone (Prednisolone) 15 Mg/5 Ml Solution 10 ML PO DAILY for 5 Days, #50 ML 0 Refills Prov: ANGE DUNCAN NP 02/12/25 Additional Instructions: FOLLOW-UP WITH PRIMARY CARE PROVIDER IN 1 TO 2 DAYS. TAKE MEDICATIONS DIRECTED HERE IN THE EMERGENCY ROOM. OKAY TO CONTINUE HOME MEDICATIONS UNLESS OTHERWISE DISCUSSED DURING YOUR VISIT IN THE EMERGENCY ROOM TODAY. RETURN TO YOUR NEAREST EMERGENCY ROOM IF SYMPTOMS WORSEN OR IF THERE IS NO IMPROVEMENT. CALL 911 IF YOU NEED IMMEDIATE ASSISTANCE. TAKE TYLENOL OR MOTRIN [id number] NEEDED AND IF NO CONTRAINDICATIONS ARE PRESENT. INCREASE ORAL HYDRATION. A WOUND CULTURE OR URINE CULTURE WAS ORDERED HERE IN THE EMERGENCY ROOM DEPARTMENT PLEASE FOLLOW-UP WITH PRIMARY CARE PROVIDER AND ADVISE THEM TO GET REPEAT PORTS FROM OUR FACILITY. IF YOU HAD ANY LEANN WRAP/SPLINTS THAT WERE APPLIED HERE, PLEASE DO NOT REMOVE THEM UNTIL YOU SEE YOUR PRIMARY CARE OR SPECIALTY. TAKE ANTIBIOTICS DIRECTED UNTIL GONE. TAKE TAMIFLU DIRECTED UNTIL GONE. TAKE PREDNISOLONE DIRECTED UNTIL GONE. INCREASE YOUR WATER INTAKE. NO WORK UNTIL CLEARED BACK BY YOUR PRIMARY CARE DOCTOR. Referrals: HUNTER DE PAZ PA-C (PCP) Time of Disposition: 14:44 I have reviewed the case, and I agree with, Diagnosis and Plan ANGE DUNCAN NP Feb 12, 2025 13:50
[2025-02-12] MEDS: dexaMETHasone SOD PHOSPHATE 4 MG/ML 1ML VIAL IM ONE (14:01)
[2025-02-12] MEDS: ibuPROFEN 800 MG TAB PO ONE (14:02)
--- NOTE | 2025-02-12 14:06 | NUR ---
PATIENT STATES THAT SHE CAN NOT SWALLOW PILLS AT THIS TIME DUE TO PAIN. ANESTHESIOLOGY RESIDENT PROVIDER ADVISED. NO NEW ORDERS AT THIS TIME.
[2025-02-12 14:27] LABS: RAPID GROUP A STREP positive (NEGATIVE)
[2025-02-12 14:28] LABS: COVID19 (SARS ANTIGEN RAPID) PRESUMPTIVE NEGATIVE (NEGATIVE); INFLUENZA TYPE A Negative For Type A (NEGATIVE)
[2025-02-12 14:30] LABS: INFLUENZA TYPE B Positive For Type B (NEGATIVE)
[2025-02-12] MEDS ORDERED: OSEL75 PO (14:45)
[2025-02-12] MEDS ORDERED: PRED15SO75 PO (14:45)
[2025-02-12] MEDS ORDERED: AMOX200S10 PO (14:45)
[2025-02-12] MEDS: cefTRIAXone 1G VIAL IM ONE (14:49)
[2025-02-12 14:51] VITALS: BP 121/83; PULSE 83; RESP 16; TEMP 98.7; O2SAT 97
== END 2025-02-12 15:07 | disposition home or self-care (01) ==
LOC: EDH 13:44
DX: J10.1 Influenza due to other identified influenza virus with other respiratory manifestations (principal); J03.00 Acute streptococcal tonsillitis, unspecified; R50.9 Fever, unspecified; E11.9 Type 2 diabetes mellitus without complications; E78.00 Pure hypercholesterolemia, unspecified; I10 Essential (primary) hypertension; M19.90 Unspecified osteoarthritis, unspecified site; Z79.624 Long term (current) use of inhibitors of nucleotide synthesis; Z79.899 Other long term (current) drug therapy; Z90.49 Acquired absence of other specified parts of digestive tract; Z98.51 Tubal ligation status; Z20.822 Contact with and (suspected) exposure to COVID-19
CPT/HCPCS: 99284; 87426; 87880; 87804 ×2; 96372 ×2; J1100; J0696

== ENCOUNTER 2025-05-31 19:40 | Emergency (ER) | payer SELFPAY ==
[~2025-05-31] VITALS: Ht 162.6 cm; Wt 83.5 kg
[~2025-05-31 19:40] MED LIST changes: +AMOX200S10 PO; +OSEL75 PO; +PRED15SO75 PO
[2025-05-31] MEDS ORDERED: HYDROcodone/APAP 5/325 1 TAB TABLET PO STA (20:01)
[2025-05-31 20:47] VITALS: BP 131/79; PULSE 88; RESP 19; TEMP 98.5; O2SAT 100
--- NOTE | 2025-05-31 21:01 | ERN ---
ED Note History of Present Illness Stated Complaint: C/O PAIN AND SWELLING TO BREASTS X 2 DAYS W/DIARRH Chief Complaint: Breast Problem Time Seen by MD: 19:53 Time Seen by Midlevel: 19:55 Dictation: 49-year-old female coming in with complaints of bilateral breast tenderness for the last two days. Does not denies having any redness, drainage, fever, nausea or vomiting. Patient states she is concerned for even though she has a bilateral tubal ligation. States her last mammogram was over a year ago. Allergies: Coded Allergies: No Known Drug Allergies (Unverified Allergy, Unknown, 01/01/22) Home Meds Active Scripts Oseltamivir Phosphate (Tamiflu) 75 Mg Cap, 75 MG PO BID for 5 Days, #10 CAP Prov:ANGE DUNCAN NP 02/12/25 Amoxicillin/Potassium Clav (Amox Tr-K Clv 600-42.9/5 Susp) 600 Mg-42.9 Mg/5 Ml Susp.recon, 10 ML PO BID for 10 Days, #200 ML 0 Refills Prov:ANGE DUNCAN NP 02/12/25 Prednisolone (Prednisolone) 15 Mg/5 Ml Solution, 10 ML PO DAILY for 5 Days, #50 ML 0 Refills Prov:ANGE DUNCAN NP 02/12/25 Valganciclovir HCl (Valganciclovir HCl) 450 Mg Tablet, 1000 MG PO BID for 10 Days, #20 TAB Prov:JENNIFER OSBORN MD 10/24/24 Ibuprofen (Ibuprofen 800 mg Tab) 800 Mg Tab, 800 MG PO Q8H PRN for fever or pain, #30 TAB 0 Refills Prov:ANGE DUNCAN NP 08/19/24 Docusate Sodium (Colace) 100 Mg Capsule, 100 MG PO TID for constipation for 10 Days, #30 CAP 0 Refills Prov:JUD DAVIS 06/12/24 Ferrous Sulfate (Ferrous Sulfate) 324 Mg (65 Mg Iron) Tablet.dr, 324 MG PO DAILY for 14 Days, #14 TAB Prov:JUD DAVIS 06/12/24 Methylprednisolone (Medrol) 4 Mg Tab.ds.pk, 4 MG PO AD, #1 PACK Prov:JUD DAVIS 06/12/24 Azithromycin (Azithromycin) 250 Mg Tablet, 250 MG PO DAILY for 5 Days, #6 TAB Take 2 250mg tablets on day 1 then take 1 250mg tablets daily for 4 days. Prov:JUD DAVIS PA 06/12/24 Terbinafine HCl (Terbinafine HCl) 250 Mg Tablet, 250 MG PO DAILY, #14 TAB Prov:[facility] 08/03/23 Phenazopyridine HCl (Pyridium) 200 Mg Tab, 200 MG PO TIDPC, #12 TAB TAKE WITH FOOD TO PREVENT STOMACH UPSET. Prov:[facility]NEY [facility] 08/03/23 Nitrofurantoin/Nitrofuran Mac (Macrobid) 100 Mg Cap, 1 CAP PO BID for 7 Days, #14 CAP 0 Refills Prov:[facility]NEY J[facility] 08/03/23 Fluconazole (Diflucan) 150 Mg Tablet, 150 MG PO Q72H, #3 TAB Prov:[facility]NEY JORADN [facility] 08/03/23 Nitrofurantoin Macrocrystal (Nitrofurantoin) 100 Mg Capsule, 100 MG PO BID, #10 CAP 0 Refills Prov:COCO DOMINGUEZ NP 06/24/23 Cephalexin Monohydrate (Keflex) 500 Mg Cap, 500 MG PO QID for 7 Days, #28 CAP Prov:BARBY PETTY V ASSISTANT WAREHOUSE MANAGER 05/07/23 Naproxen (Naprosyn) 500 Mg Tablet, 500 MG PO BIDPC for 10 Days, #20 TAB 0 Refills Prov:BARBY PETTY V ASSISTANT WAREHOUSE MANAGER 11/09/22 Ferrous Sulfate (Iron) 325 Mg Tablet, 325 MG PO BID for 30 Days, #60 TAB Prov:PEARL LEO DO 04/22/22 Ibuprofen (Ibuprofen) 600 Mg Tablet, 600 MG PO Q6H PRN for PAIN, #20 TAB Prov:PEARL LEO DO 04/22/22 Famotidine (Pepcid) 20 Mg Tablet, 20 MG PO BID, #30 TAB Prov:KAI ZHONGP 01/01/22 Dicyclomine HCl (Bentyl) 20 Mg Tab, 20 MG PO QID for ABDOMINAL PAIN, #15 TAB Prov:KAI ZHONGP 01/01/22 L.acidoph & Paracasei,B.lactis (Probiotic) 1 Each Capsule, 1 EACH PO DAILY, #30 CAP Prov:KAI ZHONG ASSISTANT WAREHOUSE MANAGER 01/01/22 Ondansetron (Ondansetron Odt) 4 Mg Tab.rapdis, 4 MG PO Q6HPRN PRN for NAUSEA, #15 TAB Prov:KAI ZHONGP 01/01/22 Past Medical History Past Medical History: No Pertinent History Surgical History: Cholecystectomy, Other Surgical History Other: TUBAL LIGATION Social History: Negative History: Not Applicable LMP: May 17, 2025 Review of System Dictation Constitutional: Negative for fever,chills, and weight loss Eyes: Negative for injury, pain,redness, and discharge ENT: Negative for injury,pain or swelling Cardiovascular: Negative for chest pain, palpitations, and edema Respiratory: Negative for shortness of breath, cough, and wheezing, Abdomen/GI: Negative for abdominal pain, nausea, vomiting, diarrhea, and constipation Back: Negative for injury and pain : Negative for injury, bleeding and discharge MS/Extremity: Negative for injury and deformity Skin: Negative for rash, and discoloration, complaining of bilateral breast tenderness Neuro: Negative for headache, weakness, numbness, tingling, and seizure Psych: Negative for suicide ideation, homicidal ideation, and hallucinations Review of Systems: was completed Initial Vital Sign VS Vital Signs Date Time Temp Pulse Resp B/P (MAP) Pulse Ox O2 Delivery O2 Flow Rate FiO2 05/31/25 19:44 98.8 87 20 135/79 100 Room Air 05/31/25 20:47 0 21 Physical Exam Dictation General: awake, alert, NAD Head/Face: Normocephalic, atraumatic Eyes: PERRL, EOMI, vision at baseline ENT: oral cavity clear, TMs clear, no signs of infection Neck: Trachea midline, supple, no nuchal rigidity Cardiovascular: RRR, normal S1/S2, No MRGs, no JVD Respiratory: CTAB, no respiratory distress, No rales or wheezes Abdomen: Soft, non-tender, non-distended, normal bowel sounds, no guarding or rebound. Skin: Warm, dry, normal turgor, no rash, brisk exam completed with primary nurse at bedside. Tenderness, generalized to bilateral breasts. No induration, redness, streaking or any signs of infectious process. MS/Extremity: Pulses equal, no cyanosis, neurovascular intact, FROM Neuro: COAx4, GCS 15, strength 5/5, CN 2-12 intact, normal cerebellar exam, normal gait, Psych: Normal behavior, mood, and affect normal Results (Laboratory/Radiology) Laboratory/Radiology Laboratory Tests Test 05/31/25 20:15 Human Chorionic Gonadotropin, Quant 0 mIU/mL (0-5) Labs Reviewed?: Yes ED Course ED Course Orders Procedure Category Date Status Time Hcg,Quantitative LAB 05/31/25 Complete 20:01 Hydrocodone/Apap PHA 05/31/25 Complete 5/325 ([place] 5/325mg) 20:01 Acetaminophen With PHA 05/31/25 Complete Codeine (Tylenol-Code 20:36 Current Medications Medications (Trade) Dose Ordered Sig/Mercedes Route PRN Reason Start Time Stop Time Status Last Admin Dose Admin Acetaminophen/ Codeine Phosphate (TYLenol-coDEINE TAB) 1 tab ONCE STAT PO 05/31/25 20:36 05/31/25 20:38 DC 05/31/25 20:45 Acetaminophen/ Hydrocodone Bitart (NORco 5/325MG) 1 tab ONCE STAT PO 05/31/25 20:01 05/31/25 20:37 DC Vital Signs Date Time Temp Pulse Resp B/P (MAP) Pulse Ox O2 Delivery O2 Flow Rate FiO2 05/31/25 20:47 98.4 88 19 131/79 100 Room Air* 0 21 05/31/25 19:44 98.8 87 20 135/79 100 Room Air Medical Decision Making MDM MDM: 49-year-old female coming in with complaints of bilateral breast tenderness for the last two days. Does not denies having any redness, drainage, fever, nausea or vomiting. Patient states she is concerned for even though she has a bilateral tubal ligation. States her last mammogram was over a year ago. test is negative. Discussed with the patient there is no infectious process, and the custody and for knee cyst or abscess therefore she needs to follow up outpatient with her PCP for a mammogram. Educated this could also be PMS symptoms from her impending menstrual cycle. Educated to take [id number] medications for pain control and follow up with the OBGYN or PCP. Patient verbalized understanding, answered all questions. Differential diagnosis: , cellulitis, P MS Rationale: Tests considered and ordered secondary to shared decision making include: Previous outside records reviewed: Old ER visits. Risk of complication and/or morbidity or mortality of patient management: None Medications-Per medication reconciliation Need for hospitalization: Patient does not meet criteria for hospitalization. Need for emergency major/minor surgery: No There are no social concerns with this patient. Prescription drug management Prescriptions will include symptomatic care Patient's prior external medical records from other ER visits were reviewed by me as indicated. Prior testing and results from previous visits were reviewed. Prior tests were taken into account with medical decision making and resource utilization, independent historian/historians were used to obtain complete medical history. I independently interpreted the test that were performed, results were reviewed by me and considered findings on radiology if ordered. Medical management and examination interpretation discussions were had by me with other qualified healthcare professionals as indicated for the patient's care. DX & DISP Disposition: Discharge Departure Impression: Primary Impression: Breast tenderness in female Condition: Stable Additional Instructions: Your test is negative. Follow up with your PCP or OBGYN for further evaluation. Take Tylenol or Motrin [id number] for pain control Referrals: HUNTER DE PAZ PA-C (PCP) Time of Disposition: 21:00 I have reviewed the case, and I agree with, Diagnosis and Plan VONDA RAMIREZ NP May 31, 2025 21:01
== END 2025-05-31 21:13 | disposition home or self-care (01) ==
LOC: EDH 19:40
DX: N64.4 Mastodynia (principal); R10.2 Pelvic and perineal pain; Z79.624 Long term (current) use of inhibitors of nucleotide synthesis; Z79.899 Other long term (current) drug therapy; Z90.49 Acquired absence of other specified parts of digestive tract; Z98.51 Tubal ligation status
CPT/HCPCS: 99283; 84702; 36415; 96372; J1885

== ENCOUNTER 2025-07-18 02:00 | Emergency (ER) | payer SELFPAY ==
[~2025-07-18] VITALS: Ht 160 cm; Wt 82.6 kg
[~2025-07-18 02:00] MED LIST changes: +IBUP-1492 PO; -IBUP-2070 PO
--- NOTE | 2025-07-18 02:18 | ERN ---
ED Note History of Present Illness Stated Complaint: C/O PAIN TO RIB AREA, LEFT SIDE Chief Complaint: Rib Pain Time Seen by MD: 02:03 Dictation: 50 YEAR OLD FEMALE PRESENTS TO ER COMPLAINTS OF LEFT RIB PAIN, APPROXIMATELY 10 HOURS AGO SHE WAS MOVING A FRIDGE AND SHE IS NOT SURE HOW SHE TWISTED OR HIT THE FRIDGE A CERTAIN WAY THAT NOW HER LEFT RIB AREA HURTS. DENIES TAKING MEDICATION FOR PAIN. COMPLAINTS OF PAIN THAT WORSENS WITH DEEP BREATHS Allergies: Coded Allergies: No Known Drug Allergies (Unverified Allergy, Unknown, 01/01/22) Home Meds Active Scripts Oseltamivir Phosphate (Tamiflu) 75 Mg Cap, 75 MG PO BID for 5 Days, #10 CAP Prov:ANGE DUNCAN NP 02/12/25 Amoxicillin/Potassium Clav (Amox Tr-K Clv 600-42.9/5 Susp) 600 Mg-42.9 Mg/5 Ml Susp.recon, 10 ML PO BID for 10 Days, #200 ML 0 Refills Prov:ANGE DUNCAN NP 02/12/25 Prednisolone (Prednisolone) 15 Mg/5 Ml Solution, 10 ML PO DAILY for 5 Days, #50 ML 0 Refills Prov:ANGE DUNCAN NP 02/12/25 Valganciclovir HCl (Valganciclovir HCl) 450 Mg Tablet, 1000 MG PO BID for 10 Days, #20 TAB Prov:JENNIFER OSBORN MD 10/24/24 Ibuprofen (Ibuprofen 800 mg Tab) 800 Mg Tab, 800 MG PO Q8H PRN for fever or pain, #30 TAB 0 Refills Prov:ANGE DUNCAN NP 08/19/24 Docusate Sodium (Colace) 100 Mg Capsule, 100 MG PO TID for constipation for 10 Days, #30 CAP 0 Refills Prov:JUD DAVIS 06/12/24 Ferrous Sulfate (Ferrous Sulfate) 324 Mg (65 Mg Iron) Tablet.dr, 324 MG PO DAILY for 14 Days, #14 TAB Prov:JUD DAVIS 06/12/24 Methylprednisolone (Medrol) 4 Mg Tab.ds.pk, 4 MG PO AD, #1 PACK Prov:JUD DAVIS 06/12/24 Azithromycin (Azithromycin) 250 Mg Tablet, 250 MG PO DAILY for 5 Days, #6 TAB Take 2 250mg tablets on day 1 then take 1 250mg tablets daily for 4 days. Prov:JUD DAVIS PA 06/12/24 Terbinafine HCl (Terbinafine HCl) 250 Mg Tablet, 250 MG PO DAILY, #14 TAB Prov:[facility] 08/03/23 Phenazopyridine HCl (Pyridium) 200 Mg Tab, 200 MG PO TIDPC, #12 TAB TAKE WITH FOOD TO PREVENT STOMACH UPSET. Prov:SIDNEY JORDAN [facility] 08/03/23 Nitrofurantoin/Nitrofuran Mac (Macrobid) 100 Mg Cap, 1 CAP PO BID for 7 Days, #14 CAP 0 Refills Prov:[facility]NEY JORDAN [facility] 08/03/23 Fluconazole (Diflucan) 150 Mg Tablet, 150 MG PO Q72H, #3 TAB Prov:[facility]NEY JORDAN [facility] 08/03/23 Nitrofurantoin Macrocrystal (Nitrofurantoin) 100 Mg Capsule, 100 MG PO BID, #10 CAP 0 Refills Prov:COCO DOMINGUEZ NP 06/24/23 Cephalexin Monohydrate (Keflex) 500 Mg Cap, 500 MG PO QID for 7 Days, #28 CAP Prov:BARBY PETTY V SEATING AND MOBILITY TECHNOLOGIST 05/07/23 Naproxen (Naprosyn) 500 Mg Tablet, 500 MG PO BIDPC for 10 Days, #20 TAB 0 Refills Prov:BARBY PETTY V SEATING AND MOBILITY TECHNOLOGIST 11/09/22 Ferrous Sulfate (Iron) 325 Mg Tablet, 325 MG PO BID for 30 Days, #60 TAB Prov:PEARL LEO DO 04/22/22 Ibuprofen (Ibuprofen) 600 Mg Tablet, 600 MG PO Q6H PRN for PAIN, #20 TAB Prov:LEOPEARL HARRISON A DO 04/22/22 Famotidine (Pepcid) 20 Mg Tablet, 20 MG PO BID, #30 TAB Prov:KAI ZHONGP 01/01/22 Dicyclomine HCl (Bentyl) 20 Mg Tab, 20 MG PO QID for ABDOMINAL PAIN, #15 TAB Prov:KAI ZHONG SEATING AND MOBILITY TECHNOLOGIST 01/01/22 L.acidoph & Paracasei,B.lactis (Probiotic) 1 Each Capsule, 1 EACH PO DAILY, #30 CAP Prov:KAI ZHONG SEATING AND MOBILITY TECHNOLOGIST 01/01/22 Ondansetron (Ondansetron Odt) 4 Mg Tab.rapdis, 4 MG PO Q6HPRN PRN for NAUSEA, #15 TAB Prov:KAI ZHONG SEATING AND MOBILITY TECHNOLOGIST 01/01/22 Past Medical History Past Medical History: No Pertinent History Surgical History: Cholecystectomy, Other Surgical History Other: TUBAL LIGATION Social History: Negative History: Not Applicable RN Note Reviewed/Agreed w/PFSH: Yes Review of System Dictation CONSTITUTIONAL: NEGATIVE FOR FEVER,CHILLS, AND WEIGHT LOSS EYES: NEGATIVE FOR INJURY, PAIN,REDNESS, AND DISCHARGE ENT: NEGATIVE FOR INJURY,PAIN OR SWELLING CARDIOVASCULAR: NEGATIVE FOR PALPITATIONS, AND EDEMA. POSITIVE FOR LEFT RIB PAIN RESPIRATORY: NEGATIVE FOR COUGH, WHEEZING,. POSITIVE SHORTNESS OF BREATH ABDOMEN/GI: NEGATIVE FOR ABDOMINAL PAIN, NAUSEA, VOMITING, DIARRHEA, AND CONSTIPATION BACK: NEGATIVE FOR INJURY AND PAIN : NEGATIVE FOR INJURY, BLEEDING AND DISCHARGE MS/EXTREMITY: NEGATIVE FOR INJURY AND DEFORMITY SKIN: NEGATIVE FOR RASH, AND DISCOLORATION NEURO: NEGATIVE FOR HEADACHE, WEAKNESS, NUMBNESS, TINGLING, AND SEIZURE PSYCH: NEGATIVE FOR SUICIDE IDEATION, HOMICIDAL IDEATION, AND HALLUCINATIONS ALLERGY/IMMUNOLOGY: NEGATIVE FOR HIVES, RASH, AND ALLERGIES Initial Vital Sign VS Vital Signs Date Time Temp Pulse Resp B/P (MAP) Pulse Ox O2 Delivery O2 Flow Rate FiO2 07/18/25 02:02 98.6 87 20 129/81 100 Room Air 07/18/25 02:11 0 21 Physical Exam Dictation GENERAL: AWAKE, ALERT, NAD HEAD/FACE: NORMOCEPHALIC, ATRAUMATIC EYES: PERRL, EOMI, VISION AT BASELINE ENT: ORAL CAVITY CLEAR, TMS CLEAR, NO SIGNS OF INFECTION NECK: TRACHEA MIDLINE, SUPPLE, NO NUCHAL RIGIDITY CARDIOVASCULAR: RRR, POSITIVE TENDERNESS UPON PALPATION TO LEFT RIB AREA RESPIRATORY: CTAB, NO RESPIRATORY DISTRESS, NO RALES OR WHEEZES ABDOMEN: SOFT, NON-TENDER, NON-DISTENDED, NORMAL BOWEL SOUNDS, NO GUARDING OR REBOUND. SKIN: WARM, DRY, NORMAL TURGOR, NO RASH MS/EXTREMITY: PULSES EQUAL, NO CYANOSIS, NEUROVASCULAR INTACT, FROM NEURO: COAX4, GCS 15, STRENGTH 5/5, CN 2-12 INTACT, NORMAL CEREBELLAR EXAM, NORMAL GAIT, PSYCH: NORMAL BEHAVIOR, MOOD, AND AFFECT NORMAL Results (Laboratory/Radiology) Laboratory/Radiology Laboratory Tests Test 07/18/25 02:19 Urine HCG, Qualitative NEGATIVE (NEGATIVE) Labs Reviewed?: Yes ED Course ED Course Orders Procedure Category Date Status Time ,Urine Test LAB 07/18/25 Complete 02:13 Ribs Unilat 2v Lt RAD 07/18/25 Taken 02:13 Ketorolac PHA 07/18/25 Complete Tromethamine 30mg/Ml 02:30 Current Medications Medications (Trade) Dose Ordered Sig/Mercedes Route PRN Reason Start Time Stop Time Status Last Admin Dose Admin Ketorolac Tromethamine (toRADol) 30 mg ONCE ONCE IM 07/18/25 02:30 07/18/25 02:31 DC 07/18/25 02:41 Vital Signs Date Time Temp Pulse Resp B/P (MAP) Pulse Ox O2 Delivery O2 Flow Rate FiO2 07/18/25 03:23 98.2 86 20 159/69 99 Room Air* 0 21 07/18/25 02:11 98.2 89 20 168/76 99 Room Air* 0 21 07/18/25 02:02 98.6 87 20 129/81 100 Room Air 2:45 a.m.-patient was signed out to me by mid-level provider to follow up on rib x-ray results. This is a 50-year-old overweight female who sustained pain on the left side of t he lower chest as she was moving a heavy object. The pain is mostly when she moves No direct injury she felt her body was twisted. Labs reviewed urine test is negative Rib series done but results pending from radiologist. 4:20 a.m. patient did not want to wait anymore for the results as her ride was arranged and she wanted to leave and follow up on the x-ray results in a few days. Preliminary that I reviewed did not show any obvious rib fractures however radiology report is pending. Medical Decision Making MDM A 14 POINTS ROS DONE, PERTINENT POSITIVE AND NEGATIVES DESCRIBED IN HPI; ALL OTHERS NEGATIVE. TIME WAS SPENT ON COUNSELING, REVIEWING MEDICAL RECORDS, REVIEWING THE ENTIRE VISIT DOCUMENTATION (INCLUDING ANY COMMENTS THAT MAY HAVE BEEN GIVEN BY THE PATIENT I.E. THE REVIEW OF SYSTEMS) AND COORDINATION OF CARE X-RAY ORDERED. MEDICATION ORDERED TO BE GIVEN AFTER NEGATIVE TEST DOCUMENTED. Differential diagnosis: Chest wall sprain, costochondritis, pleurisy mom muscle spasm Rationale: Tests considered and ordered secondary to shared decision making include: Previous outside records reviewed: Old ER visits. Risk of complication and/or morbidity or mortality of patient management: None Medications-Per medication reconciliation Need for hospitalization: Patient does not meet criteria for hospitalization. Need for emergency major/minor surgery: No There are no social concerns with this patient. Prescription drug management Prescriptions will include symptomatic care Patient's prior external medical records from other ER visits were reviewed by me as indicated. Prior testing and results from previous visits were reviewed. Prior tests were taken into account with medical decision making and resource utilization, independent historian/historians were used to obtain complete medical history. I independently interpreted the test that were performed, results were reviewed by me and considered findings on radiology if ordered. Medical management and examination interpretation discussions were had by me with other qualified healthcare professionals as indicated for the patient's care. Problem List Problem List: (1) Contusion of left chest wall (2) Sprain of chest wall DX & DISP Disposition: Discharge Departure Impression: Primary Impression: Sprain of chest wall Additional Impression: Contusion of left chest wall Condition: Stable Additional Instructions: Patient and the caregiver have been informed of all the diagnostic tests and the imaging conducted during the today's visit to the emergency room and has verbalized understanding of the results I have personally reviewed and interpreted all diagnostic exams performed here in the ER today as well as the vital signs documented by the nursing staff. The patient is now being d ischarged to home and should follow up with the primary care physician or the specialist as directed by the ER staff. Follow-up with primary care provider in 1 to 2 days. Take medications as directed here in the emergency room. Okay to continue home medications unless otherwise discussed during your visit in the emergency room today. Return to your nearest emergency room if symptoms worsen or if there is no improvement. Call 911 if you need immediate assistance. Take Tylenol or Motrin [id number] as needed and if no contraindications are present. Increase oral hydration. A wound culture or urine culture was ordered here in the emergency room department please follow-up with primary care provider and advise them to get repeat ports from our facility. If you had any Eran wrap/splints that were applied here, please do not remove them until you see your primary care or specialty. Referrals: HUNTER DE PAZ PA-C (PCP) RODRIGUEZ HUMPHREY NP Jul 18, 2025 02:18 CARLOS EDUARDO CASTRO MD Jul 18, 2025 04:23
[2025-07-18 04:17] VITALS: BP 144/62; PULSE 86; RESP 20; TEMP 98.2; O2SAT 100
--- NOTE | 2025-07-18 04:26 | HMCIMG ---
EXAM: CR Chest and Left Ribs, 3 Views. CLINICAL HISTORY: Cough. COMPARISON: None provided. FINDINGS: The lungs show no infiltrates or other acute findings. No pleural effusion or pneumothorax. The cardiomediastinal silhouette is within normal limits. No acute osseous abnormality. No acute left rib fractures. IMPRESSION: No acute cardiopulmonary pathology is evident. No acute left rib fractures. /[place]
== END 2025-07-18 04:23 | disposition home or self-care (01) ==
LOC: EDH 02:00
DX: S20.212A Contusion of left front wall of thorax, initial encounter (principal); Z79.624 Long term (current) use of inhibitors of nucleotide synthesis; Z79.899 Other long term (current) drug therapy; Z90.49 Acquired absence of other specified parts of digestive tract; Z98.51 Tubal ligation status; X50.1XXA Overexertion from prolonged static or awkward postures, initial encounter; Y93.89 Activity, other specified; Y92.89 Other specified places as the place of occurrence of the external cause; Y99.8 Other external cause status
CPT/HCPCS: 99284; 81025; 71100; 96372; J1885; 99283

== ENCOUNTER 2025-11-24 19:33 | Emergency (ER) | payer SELFPAY ==
[~2025-11-24] VITALS: Ht 165.1 cm; Wt 86.2 kg
--- NOTE | 2025-11-24 20:39 | ERN ---
General Chief Complaint: Flu Symptoms Stated Complaint: FEVER, BODYACHES Time Seen by MD: 19:57 Source: patient History of Present Illness Initial Comments Patient is a 50-year-old female coming in with a cough. Per patient he has a had this cough for several days. She has been when she coughs her head hurts. Allergies: Coded Allergies: No Known Drug Allergies (Unverified Allergy, Unknown, 01/01/22) Home Meds Active Scripts Oseltamivir Phosphate (Tamiflu) 75 Mg Cap, 75 MG PO BID for 5 Days, #10 CAP Prov:[facility] 02/12/25 Amoxicillin/Potassium Clav (Amox Tr-K Clv 600-42.9/5 Susp) 600 Mg-42.9 Mg/5 Ml Susp.recon, 10 ML PO BID for 10 Days, #200 ML 0 Refills Prov:ANGE DUNCANP 02/12/25 Prednisolone (Prednisolone) 15 Mg/5 Ml Solution, 10 ML PO DAILY for 5 Days, #50 ML 0 Refills Prov:ANGE DUNCANP 02/12/25 Valganciclovir HCl (Valganciclovir HCl) 450 Mg Tablet, 1000 MG PO BID for 10 Days, #20 TAB Prov:JENNIFER OSBORN MD 10/24/24 Ibuprofen (Ibuprofen 800 mg Tab) 800 Mg Tab, 800 MG PO Q8H PRN for fever or pain, #30 TAB 0 Refills Prov:ANGE DUNCANP 08/19/24 Docusate Sodium (Colace) 100 Mg Capsule, 100 MG PO TID for constipation for 10 Days, #30 CAP 0 Refills Prov:JUD DAVIS 06/12/24 Ferrous Sulfate (Ferrous Sulfate) 324 Mg (65 Mg Iron) Tablet.dr, 324 MG PO DAILY for 14 Days, #14 TAB Prov:JUD DAVIS 06/12/24 Methylprednisolone (Medrol) 4 Mg Tab.ds.pk, 4 MG PO AD, #1 PACK Prov:JUD DAVIS 06/12/24 Azithromycin (Azithromycin) 250 Mg Tablet, 250 MG PO DAILY for 5 Days, #6 TAB Take 2 250mg tablets on day 1 then take 1 250mg tablets daily for 4 days. Prov:JUD DAVIS 06/12/24 Terbinafine HCl (Terbinafine HCl) 250 Mg Tablet, 250 MG PO DAILY, #14 TAB Prov:ISHAN JORDANPE [employer] 08/03/23 Phenazopyridine HCl (Pyridium) 200 Mg Tab, 200 MG PO TIDPC, #12 TAB TAKE WITH FOOD TO PREVENT STOMACH UPSET. Prov:ISHAN JORDANPE [employer] 08/03/23 Nitrofurantoin/Nitrofuran Mac (Macrobid) 100 Mg Cap, 1 CAP PO BID for 7 Days, #14 CAP 0 Refills Prov:ISHAN JORDANPE [employer]OLOG[employer] 08/03/23 Fluconazole (Diflucan) 150 Mg Tablet, 150 MG PO Q72H, #3 TAB [facility] 08/03/23 Nitrofurantoin Macrocrystal (Nitrofurantoin) 100 Mg Capsule, 100 MG PO BID, #10 CAP 0 Refills Prov:ANGELICACOCO M [employer]OLOG[employer] 06/24/23 Cephalexin Monohydrate (Keflex) 500 Mg Cap, 500 MG PO QID for 7 Days, #28 CAP Prov:BARBY PETTY V [employer] 05/07/23 Naproxen (Naprosyn) 500 Mg Tablet, 500 MG PO BIDPC for 10 Days, #20 TAB 0 Refills Prov:BARBY PETTY V [employer] 11/09/22 Ferrous Sulfate (Iron) 325 Mg Tablet, 325 MG PO BID for 30 Days, #60 TAB Prov:PEARL LEO DO 04/22/22 Ibuprofen (Ibuprofen) 600 Mg Tablet, 600 MG PO Q6H PRN for PAIN, #20 TAB Prov:PEARL LEO DO 04/22/22 Famotidine (Pepcid) 20 Mg Tablet, 20 MG PO BID, #30 TAB Prov:KAI ZHONG [employer] 01/01/22 Dicyclomine HCl (Bentyl) 20 Mg Tab, 20 MG PO QID for ABDOMINAL PAIN, #15 TAB Prov:KAI ZHONG [employer] 01/01/22 L.acidoph & Paracasei,B.lactis (Probiotic) 1 Each Capsule, 1 EACH PO DAILY, #30 CAP Prov:KAI ZHONG METHODOLOG[employer] 01/01/22 Ondansetron (Ondansetron Odt) 4 Mg Tab.rapdis, 4 MG PO Q6HPRN PRN for NAUSEA, #15 TAB Prov:KAI ZHONG METHODOLOG[employer] 01/01/22 Past Medical History Past Medical History: No Pertinent History Past Surgical History: Cholecystectomy, Other Surgical History Other: TUBAL LIGATION Social History Social History: Negative Female( History) History: Not Applicable ROS Dictation CONSTITUTIONAL: No chills, no fever, no weakness, no diaphoresis, no malaise. HEAD/FACE: No signs of trauma. EENT: No eye pain, no blurred vision, no tearing, no double vision, no ear pain, no ear discharge, no nose pain, no nasal congestion, no throat pain, no throat swelling, no mouth pain. RESPIRATORY: cough, no orthopnea, no SOB, no stridor, no wheezing. CARDIOVASCULAR: No chest pain, no edema, no palpitations, no syncope. GASTROINTESTINAL/ABDOMINAL: No abdominal pain, no constipation, no diarrhea, no nausea, no vomiting. GENITOURINARY: No abnormal discharge, no dysuria, no frequent urination, no hematuria. No complaints of pain in the genitals. MUSCULOSKELETAL: No back pain, no gout, no joint pain, no joint swelling, no muscle pain, no muscle stiffness, no neck pain. INTEGUMENTARY: No change in color, no change in hair/nails, no dryness, no lesion, no lumps, no rash. NEUROLOGICAL/PSYCH: No anxiety, not depressed, no emotional problem, no headache, no numbness, no pre-existing deficit, no history of seizures, no tremors, no weakness. HEMATOLOGIC/LYMPHATIC: Not anemic, no history of blood clots, no apparent bleeding, no bruising, glands not swollen. All Systems Negative, Except as Noted. Physical Exam Physical Exam Dictation VITAL SIGNS: Reviewed. GENERAL APPEARANCE: Alert, oriented x3, no acute distress, obese. HEAD AND FACE: Non-traumatic. EYES: PERRL, pink conjunctivas, eyelid no trauma, anterior chamber clear. EARS: Pinnas intact and no signs of trauma or erythema. Ear canals clear and no discharge. TMs no erythema. NOSE: No discharge, no bleeding. OROPHARYNX: Mouth normal, teeth no caries, tongue pink. Pharynx clear, no erythema. Tonsils no exudates, no abscesses noted. Mucous membrane moist. NECK: Supple, non-tender, no thyromegaly, no masses, no JVD, no bruits. BREAST: Deferred. CHEST: No tenderness, no crepitus, no paradoxical movement, no retractions. LUNGS: Clear, well-ventilated, symmetric, no rales, no wheezing, no rhonchi, no stridor, good breath sounds bilaterally. HEART: Regular rate, regular rhythm, no murmur, no gallops. VASCULAR: No peripheral edema. ABDOMEN: Soft, positive bowel sounds, nondistended, no guarding, nontender, no rebound, no masses no hepatomegaly, no splenomegaly, no Rodriges's sign, no hernias. RECTAL: Deferred. GENITAL: Deferred. NEUROLOGICAL: Normal speech, gross motor function intact, gross sensory function intact. MUSCULOSKELETAL: Neck nontender, full range of motion, back nontender, full range of motion. EXTREMITIES: Nontender, full range of motion. SKIN: Color pink, dry, no turgor, no rash, no lacerations, no abrasions, no contusions. LYMPHATICS: Deferred. Results Laboratory and Microbiology Labs Reviewed?: Yes MDM MDM: Differential diagnosis: Sinusitis, COVID, flu, strep, Rationale: Tests considered and ordered secondary to shared decision making include: Previous outside records reviewed: Old ER visits. Risk of complication and/or morbidity or mortality of patient management: None Medications-Per medication reconciliation Need for hospitalization: Patient does not meet criteria for hospitalization. Need for emergency major/minor surgery: No Patient 50 female coming in complaining of a cough. On physical exam that has oropharyngeal erythema nasal turbinate swelling lungs are clear to auscultation and tympanic membrane erythema bilateral. Patient will be discharged with a diagnosis of sinusitis antibiotics will be provided. I did advise her close follow up with the PCP for ongoing evaluation and continued management. ED Course Orders Procedure Category Date Status Time ,Urine Test LAB 11/24/25 Logged 20:28 Chest 1vw RAD 11/24/25 Taken 20:28 Vital Signs Date Time Temp Pulse Resp B/P (MAP) Pulse Ox O2 Delivery O2 Flow Rate FiO2 11/24/25 19:55 98.8 90 20 146/77 100 Room Air DX & DISP Disposition: Discharge Departure Impression: Primary Impression: Sinusitis Condition: Stable Scripts Loratadine (Loratadine) 10 Mg Tablet 1 TAB PO DAILY for allergy symptoms for 30 Days, #30 TAB 0 Refills Prov: JENNIFER OSBORN MD 11/24/25 Fluticasone Propionate (Flonase Nasal [place]) 50 Mcg/Actuation [place] 2 SPRAY NS DAILY, #16 GM 0 Refills Prov: JENNIFER OSBORN MD 11/24/25 Amoxicillin/Potassium Clav (Amox Tr-K Clv 875-125 mg Tab) 875 Mg-125 Mg Tablet 1 TAB PO BID for 10 Days, #20 TAB 0 Refills Prov: JENNIFER OSBORN MD 11/24/25 Additional Instructions: FOLLOW-UP WITH PRIMARY CARE PROVIDER IN 1 TO 2 DAYS. TAKE MEDICATIONS DIRECTED HERE IN THE EMERGENCY ROOM. OKAY TO CONTINUE HOME MEDICATIONS UNLESS OTHERWISE DISCUSSED DURING YOUR VISIT IN THE EMERGENCY ROOM TODAY. RETURN TO YOUR NEAREST EMERGENCY ROOM IF SYMPTOMS WORSEN OR IF THERE IS NO IMPROVEMENT. CALL 911 IF YOU NEED IMMEDIATE ASSISTANCE. TAKE TYLENOL [id number] NEEDED AND IF NO CONTRAINDICATIONS ARE PRESENT. INCREASE ORAL HYDRATION. A WOUND CULTURE OR URINE CULTURE WAS ORDERED HERE IN THE EMERGENCY ROOM DEPARTMENT PLEASE FOLLOW-UP WITH PRIMARY CARE PROVIDER AND ADVISE THEM TO GET REPORTS FROM OUR FACILITY. IF YOU HAD ANY LEANN WRAP/SPLINTS THAT WERE APPLIED HERE, PLEASE DO NOT REMOVE THEM UNTIL YOU SEE YOUR PRIMARY CARE OR SPECIALTY. Referrals: Referrals: HUNTER DE PAZ PA-C (PCP) Time of Disposition: 21:57 JENNIFER SOBORN MD Nov 24, 2025 20:39
--- NOTE | 2025-11-24 21:37 | NUR ---
UA CUP PROVIDED
[2025-11-24] MEDS ORDERED: LORA10TA7 PO (21:57)
[2025-11-24] MEDS ORDERED: AMOX1TAB16 PO (21:57)
[2025-11-24] MEDS ORDERED: FLUT16H NS (21:57)
--- NOTE | 2025-11-24 22:03 | NUR ---
UA COLLECTED AND SENT
--- NOTE | 2025-11-24 22:03 | NUR ---
Clementina delarosa in [facility] - 11/24/25 at 2204 by JULY UA LUCIAN N
--- NOTE | 2025-11-24 22:25 | HMCIMG ---
EXAM: CR Chest, 1 View. CLINICAL HISTORY: cough COMPARISON: None provided. FINDINGS: LUNGS: There is no mass, infiltrate, or acute pulmonary abnormality. PLEURAL SPACES: No evidence of pleural effusion or pneumothorax. MEDIASTINUM: Cardiac size and mediastinal contours within normal limits. BONES: No acute osseous abnormality. IMPRESSION: No acute cardiopulmonary pathology is evident. /[place]
[2025-11-24 22:46] VITALS: BP 168/74; PULSE 74; RESP 20; TEMP 98.7; O2SAT 99
== END 2025-11-24 22:47 | disposition home or self-care (01) ==
LOC: EDH 19:33
DX: J32.9 Chronic sinusitis, unspecified (principal); Z79.899 Other long term (current) drug therapy; Z79.624 Long term (current) use of inhibitors of nucleotide synthesis; Z90.49 Acquired absence of other specified parts of digestive tract; Z98.51 Tubal ligation status
CPT/HCPCS: 99283; 71045; 81025; 96372; J1100; 99284